=== PATIENT | female | born 1980 | race Caucasian/White ===

== ENCOUNTER → 2017-11-14 | Day surgery (SDC) | payer MEDICAID ==
--- NOTE | 2017-11-12 13:33 | MH ---
cc: SYED RUSSELL M.D. DATE OF ADMISSION: 11/14/2017 1980. CHIEF COMPLAINT Right serous otitis, right otitis media. HISTORY OF PRESENT ILLNESS This is a 37-year-old female with previous history of chronic sinusitis, chronic otitis, eustachian tube dysfunction on the right, she has had previous ear tubes. Her tube had been extruded and she had done well for sometime but now has developed pressure, pain and serous otitis. She has not responded to medical therapy and plan is for right myringotomy and T-tube under general anesthesia. PAST MEDICAL HISTORY 1. Chronic sinusitis. 2. Nasal obstruction. 3. Chronic headaches. MEDICATIONS Medications include: 1. Promethazine. 2. Lortab. 3. Hydrocodone. 4. Flonase. 5. Elocon. PHYSICAL EXAMINATION GENERAL: A well-developed female, in no apparent distress. HEENT: Normocephalic, atraumatic. Extraocular motions intact. External ear canals clear. Right tympanic membrane retracted, serous fluid. Left tympanic membrane shows no retraction or fluid level. The nasal exam shows no purulence. Lips, oral mucosa and pharynx show no lesion. NECK: Shows no masses. CHEST: Clear to auscultation. HEART: Regular rate. ABDOMEN: Soft. EXTREMITIES: No lesion. NEUROLOGIC: Exam nonfocal. ASSESSMENT 37-year-old female with right serous otitis, to undergo right myringotomy and tube under general anesthesia. The risks and benefits were discussed with the patient. The risks include but not limited to anesthesia, bleeding, unfavorable scarring, TM perforation, early tube extrusion, tube retention requiring removal of tube, otorrhea requiring removal, cholesteatoma, hearing loss. The patient states she understands and accepts the risks of the procedure. MD JULIANE Johnson/THERESE /12:58 PM /1:15 PM
[~2017-11-14] MED LIST: BENA25TA6 PO; CHLORHEXIDINE GLUCONATE 2 % 1 PACK (2 CLOTHS) TOPICAL PRN; DEXAMETHASONE SOD PHOS 4 MG/ML VIAL IV ONE; FLUT1SPR5 EACH NARE; KETOROLAC TROMETHAMINE 10 MG TAB ONE; LACTATED RINGER'S 1000 ML IV PRN; LIDOCAINE HCL 1% PF 5 ML SYRINGE OTHER ONE; METOPROLOL TARTRATE 25 MG TAB PO PRN; MIDAZOLAM HCL 2 MG/2 ML VIAL ONE; MORPHINE SULFATE 4 MG/ML INJ ONE; MULTTAB67 PO; OFLOXACIN 0.3% OPTH SOLN 5 ML BTL ONE; ONDANSETRON HCL 4 MG/2 ML VIAL IV PUSH ONE; PROM25TA10 PO; PROPOFOL 200 MG/20 ML AMP IV ONE; SODIUM CHLORID 0.9% 500 ML IV PRN
[2017-11-14 08:16] LABS: AUTOMATED NEUTROPHIL # 4.8 TH/MM3 (1.8-7.7); BASOPHIL # 0.1 TH/MM3 (0-0.2); BASOPHIL % 0.7 % (0.0-2.0); EOSINOPHIL # 0.6 TH/MM3 (0-0.4); EOSINOPHIL % 7.9 % (0.0-4.0); HEMATOCRIT 36.2 % (35.0-46.0); HEMOGLOBIN 12.3 GM/DL (11.6-15.3); LYMPH % 20.5 % (9.0-44.0); LYMPHOCYTE # 1.5 TH/MM3 (1.0-4.8); MEAN CELL VOLUME 77.8 FL (80.0-100.0); MEAN CORPUSCULAR HEMOGLOBIN 26.5 PG (27.0-34.0); MEAN CORPUSCULAR HGB CONC 34.1 % (32.0-36.0); MEAN PLATELET VOLUME 9.8 FL (7.0-11.0); MONO % 7.6 % (0.0-8.0); MONOCYTE # 0.6 TH/MM3 (0-0.9); NEUT % 63.3 % (16.0-70.0); PLATELET COUNT 296 TH/MM3 (150-450); RED BLOOD COUNT 4.65 MIL/MM3 (4.00-5.30); RED CELL DISTRIBUTION WIDTH 14.2 % (11.6-17.2); WHITE BLOOD COUNT 7.5 TH/MM3 (4.0-11.0)
[2017-11-14 10:25] VITALS: BP 104/56; PULSE 86; RESP 18; TEMP 98.1; O2SAT 97
--- NOTE | 2017-11-14 10:41 | MP ---
cc: SYED RUSSELL M.D. DATE OF SURGERY 11/14/2017 DATE OF 1980 INDICATIONS The patient has a history of right chronic otitis media and serous otitis. She has obstruction. She has had previous ear tubes and has mucoid otitis in addition. She has failed medical therapy. She will not be able to tolerate this under local. We plan right myringotomy and tube under general anesthesia. PREOPERATIVE DIAGNOSIS Chronic otitis media on the right. POSTOPERATIVE DIAGNOSIS Chronic otitis media on the right. PROCEDURE Right myringotomy and tube under general anesthesia. SUMMARY The patient was brought to the operating room, placed in the supine position, successfully placed under general anesthesia and prepared in the usual fashion for this procedure. The right ear was examined under the microscope. It was cleared of debris. A myringotomy incision was made anteriorly and inferiorly. Serous fluid and thick mucoid fluid was suctioned from the middle ear and then a pressure equalization T-tube was placed without complication. Ofloxacin drops were applied. The patient tolerated the procedure well, was awakened and taken to Recovery in stable condition. MD JULIANE Johnson/RICHARD /10:19 AM /10:29 AM
== END | disposition home or self-care (01) ==
LOC: HSDC 06:49
PROVIDERS: ATTEND Specialist
DX: H66.91 Otitis media, unspecified, right ear (principal)
CPT/HCPCS: 00126; 69436; 85025; J1100; J2250; J2270; J2405; J3010

== ENCOUNTER 2018-01-18 09:47 | Emergency (ER) | payer MEDICAID ==
[~2018-01-18] VITALS: Ht 170.2 cm; Wt 75.0 kg
[~2018-01-18 09:47] MED LIST changes: -BENA25TA6 PO; -CHLORHEXIDINE GLUCONATE 2 % 1 PACK (2 CLOTHS) TOPICAL PRN; -DEXAMETHASONE SOD PHOS 4 MG/ML VIAL IV ONE; -FLUT1SPR5 EACH NARE; -KETOROLAC TROMETHAMINE 10 MG TAB ONE; -LACTATED RINGER'S 1000 ML IV PRN; -LIDOCAINE HCL 1% PF 5 ML SYRINGE OTHER ONE; -METOPROLOL TARTRATE 25 MG TAB PO PRN; -MIDAZOLAM HCL 2 MG/2 ML VIAL ONE; -MORPHINE SULFATE 4 MG/ML INJ ONE; -MULTTAB67 PO; -OFLOXACIN 0.3% OPTH SOLN 5 ML BTL ONE; -ONDANSETRON HCL 4 MG/2 ML VIAL IV PUSH ONE; -PROPOFOL 200 MG/20 ML AMP IV ONE; -SODIUM CHLORID 0.9% 500 ML IV PRN
[2018-01-18 09:49] VITALS: BP 170/76; PULSE 84; RESP 18; TEMP 98; O2SAT 100
--- NOTE | 2018-01-18 10:49 | RADRPT ---
EXAM DATE/TIME: 01/18/2018 10:07 [facility] COMPARISON: CHEST SINGLE AP, January 11, 2010, 10:31. INDICATIONS : Posterior chest pain at upper medial location after several months of coughing. MEDICAL HISTORY : None. SURGICAL HISTORY : None. ENCOUNTER: Initial ACUITY: 1 week PAIN SCORE: 7/10 LOCATION: Left posterior upper chest wall. FINDINGS: PA and lateral views of the chest reveal suspected bulla involving the left apex. The lungs are clear without infiltrate or effusion. Heart is normal in size. Bony structures are unremarkable. CONCLUSION: Suspected bulla involving the left apex. Otherwise, no acute cardiopulmonary disease. Raymundo Moreno Jr., MD on January 18, 2018 at 10:44 Board Certified Radiologist. This report was verified electronically.
--- NOTE | 2018-01-19 19:30 | EKG ---
Date Performed: 01/18/2018 Time Performed: 10:26:07 PTAGE: 37 years EKG: Sinus rhythm WITH SINUS ARRHYTHMIA NORMAL ECG Since the PREVIOUS TRACING , no significant change noted PREVIOUS TRACIN07/28/2011 14.20 DOCTOR: Susu Talbot Interpretating Date/Time 01/19/2018 19:28:47
== END 2018-01-18 12:48 | disposition left against medical advice (07) ==
LOC: NED 09:47
DX: R05 Cough (principal); R06.02 Shortness of breath; M54.6 Pain in thoracic spine; Z53.21 Procedure and treatment not carried out due to patient leaving prior to being seen by health care provider
CPT/HCPCS: 71046; 93005; 99281